=== PATIENT | female | born 1975 | race Caucasian/White ===

== ENCOUNTER 2024-04-20 06:25 | Day surgery (SDC) | payer OTHER ==
[~2024-04-20] VITALS: Ht 160 cm; Wt 74.4 kg
[2024-04-20] MEDS ORDERED: norvas (07:34)
[2024-04-20] MEDS ORDERED: atenolol (07:34)
[2024-04-20] MEDS ORDERED: norvasc (07:34)
[2024-04-20] MEDS ORDERED: ceFAZolin 2,000 MG VIAL ONE (07:39)
[2024-04-20] MEDS ORDERED: ACETAMINOPHEN 100 ML IV ONE (07:40)
[2024-04-20] MEDS ORDERED: spironolactone (07:43)
[2024-04-20] MEDS ORDERED: fentaNYL citrate 0.05 MG/ML VIAL ONE (07:43)
[2024-04-20] MEDS ORDERED: MIDAZOLAM 2 MG/2 ML VIAL ONE (07:44)
[2024-04-20] MEDS ORDERED: PROPOFOL 200 MG/20 ML VIAL IV ONE (07:48)
[2024-04-20] MEDS ORDERED: SUCCINYLCHOLINE CHLORIDE 200 MG/10 ML VIAL IVP ONE (07:59)
[2024-04-20] MEDS ORDERED: ROCURONIUM 50 MG/5 ML VIAL IV ONE (07:59)
[2024-04-20] MEDS ORDERED: DEXAMETHASONE 4 MG/ML VIAL ONE ×2 (08:07)
[2024-04-20] MEDS ORDERED: ONDANSETRON 4 MG/2 ML VIAL ONE ×2 (08:07)
[2024-04-20] MEDS: ceFAZolin 1,000 MG VIAL ONE ×2 (08:32)
[2024-04-20] MEDS ORDERED: KETOROLAC 30 MG/ML VIAL ONE (09:26)
[2024-04-20] MEDS ORDERED: GLYCOPYRROLATE 0.2 MG/ML VIAL ONE ×3 (09:26)
[2024-04-20] MEDS ORDERED: NEOSTIGMINE 1:1000 10 MG/10 ML VIAL ONE (09:26)
[2024-04-20] MEDS: BUPIVACAINE-MPF 0.25% 30 ML VIAL INJ ONE (09:39)
[2024-04-20] MEDS: LIDOCAINE/EPI 1% 1:100000 20 ML VIAL INJ ONE (09:39)
== END 2024-04-20 11:20 | disposition home or self-care (01) ==
LOC: MDS 06:25 → MMU 06:29 → MDS 11:20
PROVIDERS: ATTEND Obstetrics & Gynecology
DX: N83.201 Unspecified ovarian cyst, right side (principal); N83.202 Unspecified ovarian cyst, left side; I10 Essential (primary) hypertension; E78.00 Pure hypercholesterolemia, unspecified; E03.9 Hypothyroidism, unspecified; Z79.899 Other long term (current) drug therapy; Z98.890 Other specified postprocedural states; Z98.84 Bariatric surgery status
CPT/HCPCS: 58661; 93005; J0330; J0690; J1100; J1885; J2001; J2250; J2405; J2704; J2710; J3010; J3490; J7030; J7120; 88305; 88307